=== PATIENT | female | born 1975 | race African-American/Black ===

== ENCOUNTER 2018-02-04 20:02 | Emergency (ER) | payer SELFPAY ==
[~2018-02-04] VITALS: Ht 170.2 cm; Wt 72.6 kg
[~2018-02-04 20:02] MED LIST: POLYTRIM OP SOL10 ML OPHTHALM
[2018-02-04 20:29] VITALS: BP 130/84
[2018-02-04] MEDS ORDERED: ROBAXIN-750750 MG PO (22:03)
[2018-02-04] MEDS ORDERED: IBUPROFEN600 MG ORAL (22:03)
[2018-02-04 22:05] VITALS: BP 119/74
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
== END 2018-02-04 22:05 | disposition home or self-care (01) ==
LOC: EMR 20:36
DX: S39.012A Strain of muscle, fascia and tendon of lower back, initial encounter (principal); S76.011A Strain of muscle, fascia and tendon of right hip, initial encounter; V43.52XA Car driver injured in collision with other type car in traffic accident, initial encounter; Y92.410 Unspecified street and highway as the place of occurrence of the external cause
CPT/HCPCS: 72020; 81025; 99284